=== PATIENT | male | born 2000 | race Caucasian/White ===

== ENCOUNTER 2020-12-06 13:39 | Emergency (ER) | payer OTHER ==
[~2020-12-06] VITALS: Ht 172.7 cm; Wt 72.7 kg
[2020-12-06] MEDS ORDERED: CONCERTA27 MG PO (13:52)
[2020-12-06] MEDS ORDERED: NAPROSYN500 MG PO (14:21)
[2020-12-06 14:54] VITALS: BP 118/67; PULSE 81; TEMP 97.4
== END 2020-12-06 14:56 | disposition home or self-care (01) ==
LOC: COL.ER 13:39
DX: S93.401A Sprain of unspecified ligament of right ankle, initial encounter (principal); X50.0XXA Overexertion from strenuous movement or load, initial encounter; Y93.67 Activity, basketball